=== PATIENT | male | born 1970 | race Caucasian/White ===

== ENCOUNTER 2017-01-19 02:19 | Emergency (ER) | payer OTHER ==
[2017-01-19 02:19] VITALS: BMI 38.3
[2017-01-19] MEDS ORDERED: Aspirin 325 mg EC Tablets PO STA (02:38)
[2017-01-19] MEDS ORDERED: Aspirin 325 mg EC Tablets PO ONE (03:14)
--- NOTE | 2017-01-19 04:33 | C.PDOC ---
History Of Present Illness pt woke up from sleep with a sharp chest pain. No f/c/n/v. speaking in complete sentences. Dull ache, 4/10, non radiating Time Seen by Provider: 01/19/17 02:36 Chief Complaint (Nursing): Chest Pain History Per: Patient History/Exam Limitations: no limitations Onset/Duration Of Symptoms: Hrs Current Symptoms Are (Timing): Still Present Context: Other Severity: Moderate Pain Scale Rating Of: 4 Quality: Dull, Burning Associated Symptoms: denies: Nausea, Dyspnea, Diaphoresis Modifying Factors: None Exacerbating Factors: None Alleviating Factors: None Recent travel outside of the [place]: No Additional History Per: Family Past Medical History Reviewed: Historical Data, Nursing Documentation, Vital Signs Vital Signs: Last Vital Signs Temp 98.3 F 01/19/17 02:30 Pulse 84 01/19/17 02:30 Resp 20 01/19/17 02:30 BP 147/91 H 01/19/17 02:30 Pulse Ox 97 01/19/17 04:09 - Medical History PMH: HTN Surgical History: Appendectomy - [facility] Procedures APPLICATION OF SPLINT (10/07/14) Family History: States: Unknown Family Hx - Social History Hx Tobacco Use: No Hx Alcohol Use: Yes Hx Substance Use: No - Immunization History Hx Tetanus Toxoid Vaccination: No Hx Influenza Vaccination: No Hx Pneumococcal Vaccination: No Review Of Systems Constitutional: Negative for: Fever, Chills Eyes: Negative for: Redness ENT: Negative for: Throat Pain Cardiovascular: Positive for: Chest Pain Respiratory: Negative for: Shortness of Breath Gastrointestinal: Negative for: Nausea, Vomiting, Abdominal Pain Genitourinary: Negative for: Dysuria Musculoskeletal: Negative for: Back Pain Skin: Negative for: Rash, Lesions, Jaundice, Bruising Neurological: Negative for: Weakness Psych: Negative for: Anxiety Physical Exam - Physical Exam Appears: Non-toxic, No Acute Distress Skin: Warm, Dry Head: Normacephalic Eye(s): bilateral: Normal Inspection, PERRL, EOMI Neck: Trachea Midline, Supple Chest: Symmetrical Cardiovascular: Rhythm Regular Respiratory: No Rales, No Rhonchi, No Wheezing Gastrointestinal/Abdominal: Soft, No Tenderness, No Distention, No Guarding, No Rebound Back: Normal Inspection Extremity: Normal ROM Extremity: Bilateral: Atraumatic, Normal Color And Temperature, Normal ROM Neurological/Psych: Oriented x3, Normal Speech, Normal Cognition Gait: Steady ED Course And Treatment ECG: Interpreted By Me, Viewed By Me ECG Rhythm: Sinus Rhythm (81), Nonspecific Changes O2 Sat by Pulse Oximetry: 97 Pulse Ox Interpretation: Normal - Radiology CXR: Interpreted by Me, Viewed By Me CXR Interpretation: No: Infiltrates, Fracture, Pnemothorax Progress Note: cardiac work up, asa Reevaluation Time: 04:08 Reassessment Condition: Improved Medical Decision Making Medical Decision Making: I considered the following diagnoses: acute coronary syndrome, pulmonary embolism, lower respiratory infection, aortic dissection/aneurysm, pneumothorax , pericarditis, esophagitis/GERD, zoster and esophageal rupture but found them to be unlikely based on the history, physical exam, and diagnostics. My conclusions regarding the unlikely diagnoses were based on: the absence of significant EKG abnormalities, the lack of suggestive x-ray findings, the absence of significant abnormalities on cardiac monitoring, the absence of asymmetric pulses. Pt feels fine, cp free and wants to go home Upon provider reevaluation patient is feeling better, is medically stable, and requires no further treatment in the ED at this time. Patient will be discharged home with Rx for protonix . Counseling was provided and all questions were answered regarding diagnosis and need for follow up with the referred clinic. There is agreement to discharge plan. Return if symptoms persist or worsen. Disposition Counseled Patient/Family Regarding: Studies Performed, Diagnosis, Need For Followup, Rx Given - Disposition Referrals: [facility] [Outside] [facility] [Outside] Disposition: HOME/ ROUTINE Disposition Time: 02:37 Condition: FAIR Additional Instructions: Please return if symptoms recur Prescriptions: Pantoprazole Sodium [Protonix] 40 mg PO DAILY #15 ect Instructions: Chest Pain (DC), Gastroesophageal Reflux Disease (ED) - Clinical Impression Clinical Impression: Chest pain, GERD (gastroesophageal reflux disease)
[2017-01-19 04:36] VITALS: BP 131/90; PULSE 84; RESP 20; TEMP 98.3; O2SAT 100
[2017-01-19 06:31] LABS: URINE BILIRUBIN NEGATIVE (NEGATIVE); URINE BLOOD NEGATIVE (NEGATIVE); URINE COLOR Yellow (YELLOW); URINE GLUCOSE (UA) NORMAL (Normal); URINE HYALINE CAST 0-2 /lpf (0-2); URINE KETONE NEGATIVE (NEGATIVE); URINE LEUKOCYTE ESTERASE NEG Leu/uL (Negative); URINE PROTEIN NEGATIVE (NEGATIVE); WBC URINE 1 /hpf (0-5)
[2017-01-19 06:39] LABS: ALB/GLOB RATIO 1.2 (1.0-2.1); ALKALINE PHOSPHATASE 174 U/L (38-126); ALT/SGPT 103 U/L (21-72); AST/SGOT 59 U/L (17-59); BILIRUBIN,TOTAL 0.7 mg/dL (0.2-1.3); BLOOD UREA NITROGEN 17 mg/dL (9-20); CALCIUM 8.9 mg/dl (8.6-10.4); CARBON DIOXIDE 27 mmol/L (22-30); CHLORIDE 103 mmol/L (98-107); GFR AFRICAN-AMERICAN > 60; GLUCOSE,RANDOM 159 mg/dL (75-110); POTASSIUM 3.9 mmol/L (3.6-5.2); SODIUM 141 mmol/L (132-148); TOTAL PROTEIN 7.4 g/dL (6.3-8.3)
[2017-01-19 06:43] LABS: INR 1.1
[2017-01-19 06:45] LABS: BASO % 0.5 % (0.0-2.0); EOS # 0.3 K/uL (0.0-0.7); EOS % 4.5 % (0.0-4.0); HEMATOCRIT 45.9 % (35.0-51.0); LYMPH # 2.4 K/uL (1.0-4.3); LYMPH % 40.9 % (20.0-40.0); MEAN CORPUSCULAR HEMOGLOBIN 29.7 pg (27.0-31.0); MEAN CORPUSCULAR HGB CONC 34.1 g/dL (33.0-37.0); MEAN PLATELET VOLUME 8.7 fL (7.2-11.7); MONO # 0.5 K/uL (0.0-0.8); MONO % 9.1 % (0.0-10.0); NRBC % 0.1 % (0.0-2.0); RED CELL DISTRIBUTION WIDTH 12.9 % (11.5-14.5)
--- NOTE | 2017-01-19 08:29 | RAD ---
PROCEDURE: CHEST RADIOGRAPH, 1 VIEW HISTORY: chest pain COMPARISON: None available. FINDINGS: LUNGS: Mild venous congestion. PLEURA: No pneumothorax or pleural fluid seen. CARDIOVASCULAR: Normal. OSSEOUS STRUCTURES: No significant abnormalities. VISUALIZED UPPER ABDOMEN: Normal. OTHER FINDINGS: None. IMPRESSION: Mild venous congestion.
--- NOTE | 2017-01-20 15:06 | CARD ---
APPROVED REPORT EKG Measurement Heart [id number] <Conclusion> Normal sinus rhythm Normal ECG
== END 2017-01-19 04:26 | disposition home or self-care (01) ==
LOC: C.ER 02:19
DX: K21.9 Gastro-esophageal reflux disease without esophagitis (principal)

== ENCOUNTER 2018-01-05 21:43 | Emergency (ER) | payer SELFPAY ==
[2018-01-05 21:43] VITALS: BMI 38.7
[2018-01-05 22:31] VITALS: O2SAT 98
[2018-01-05] MEDS ORDERED: Ciprofloxacin 400mg/200ml D5W 400 MG/200 ML BAG IV STA (22:43)
[2018-01-05] MEDS ORDERED: Ciprofloxacin 400mg/200ml D5W 400 MG/200 ML BAG IVPB ONE (22:57)
--- NOTE | 2018-01-05 22:58 | C.PDOC ---
History Of Present Illness 47 year old male with a PMH of HTN presents to ED with complaints of left sided mass for the past week growing in size and becoming increasingly painful. He reports history of similar abscess in the past. He has been applying warm towel to the area. Denies any fever or drainage. Time Seen by Provider: 01/05/18 22:27 Chief Complaint (Nursing): Abnormal Skin Integrity History Per: Patient History/Exam Limitations: no limitations Onset/Duration Of Symptoms: Days Current Symptoms Are (Timing): Still Present Location Of Injury: Left: Buttock Quality Of Symptoms: Painful Recent travel outside of the [place]: No Past Medical History Reviewed: Historical Data, Nursing Documentation, Vital Signs Vital Signs: Last Vital Signs Temp 98.2 F 01/06/18 01:25 Pulse 94 H 01/06/18 01:25 Resp 18 01/06/18 01:25 BP 138/70 01/06/18 01:25 Pulse Ox 98 01/06/18 01:25 - Medical History PMH: HTN Surgical History: Appendectomy - [facility] Procedures APPLICATION OF SPLINT (10/07/14) Family History: States: Unknown Family Hx - Social History Hx Tobacco Use: No Hx Alcohol Use: Yes Hx Substance Use: No - Immunization History Hx Tetanus Toxoid Vaccination: No Hx Influenza Vaccination: No Hx Pneumococcal Vaccination: No Review Of Systems Constitutional: Negative for: Fever, Chills Gastrointestinal: Positive for: Other (Left perianal abscess) Physical Exam - Physical Exam Appears: Non-toxic Skin: Warm, Dry Head: Atraumatic, Normacephalic Eye(s): bilateral: Normal Inspection Chest: Symmetrical, No Tenderness Cardiovascular: Rhythm Regular Respiratory: Normal Breath Sounds, No Rales, No Rhonchi, No Wheezing Gastrointestinal/Abdominal: Soft, No Tenderness, Other (Obese) Rectal: Other (large [id number] fluctuant mass with surrounding erythema to left perianal region, no drainage) Neurological/Psych: Oriented x3, Normal Speech, Other (No focal deficits) ED Course And Treatment - Laboratory Results Result Diagrams: 01/05/18 22:55 01/05/18 22:55 O2 Sat by Pulse Oximetry: 98 - CT Scan/US CT abd/pel Other Rad Studies (CT/US): Read By Radiologist, Radiology Report Reviewed CT/US Interpretation: EXAM: CT Abdomen and Pelvis With Intravenous Contrast. EXAM DATE/TIME: 01/05/2018 10:39 PM. CLINICAL HISTORY: 47 years old, male; Pain ; Abdominal pain; Additional info: Perirectal abscess. TECHNIQUE: Axial computed tomography images of the abdomen and pelvis with intravenous contrast. All CT. scans at this facility use one or more dose reduction techniques, viz. : automated exposure control;. ma/kV adjustment per patient size (including targeted exams where dose is matched to indication; i.e. head); or iterative reconstruction technique. Coronal and sagittal reformatted images were created and reviewed. CONTRAST: 100 mL of [id number] administered intravenously. COMPARISON: There are no prior studies for comparison. FINDINGS: Lower thorax : Heart size is normal. A small hiatal hernia. There is dependent atelectasis at the lung. bases. ABDOMEN: Liver: There is fatty infiltration of the liver. Gallbladder and bile ducts: unremarkable. Pancreas: Pancreas is mildly atrophic. Spleen: unremarkable. Adrenals: unremarkable. Kidneys and ureters: unremarkable. Stomach and bowel: Stomach is partially distended with air-fluid level. Rotation is normal. There is. no small bowel obstruction. Terminal ileum is unremarkable. There are surgical clips at the base of. the cecum. There are no focal colonic abnormalities. There is no perirectal abscess. PELVIS: Appendix: Surgically absent. Bladder: unremarkable. Reproductive: Seminal vesicles and prostate are unremarkable. ABDOMEN and PELVIS: Intraperitoneal space: There is no free air or free fluid. Bones/joints: There are degenerative changes in the osseus structures. There is minimal wedging. T11 and T10. Soft tissues: See above. Vasculature: Vascular structures are unremarkable. Lymph nodes: There is no pathologic adenopathy. Other findings: There is minimal bruising in the left lower abdominal lobe. IMPRESSION: Fatty liver, no acute solid visceral or bowel abnormality; prior appendectomy; no. perirectal abscess Medical Decision Making Medical Decision Making: Impression: abscess to perianal area Plan: * Labs * UA * IV Cipro * CT Abd/Pelvis Progress: CT abd/pel results IMPRESSION: Fatty liver, no acute solid visceral or bowel abnormality; prior appendectomy; no perirectal abscess 0050 contact surgical specialist for eval 0102 surgical specialist Vernell Nath at bedside to perform I&D of site. Wound culture obtained and sent to lab. Dressing applied Patient remained afebrile and reported improvement of symptoms. Rx given and instructed on follow up . Disposition Counseled Patient/Family Regarding: Studies Performed, Diagnosis, Need For Followup, Rx Given - Disposition Referrals: [facility] [Outside] [facility] [Outside] Disposition: HOME/ ROUTINE Disposition Time: 01:15 Condition: STABLE Additional Instructions: Rx sent to [facility] Take antibiotics daily as directed apply warm compresses to area can follow up for wound check in 2 days Return to the emergency department at any time if symptoms persist or worsen. Prescriptions: Cephalexin [cephalexin] 500 mg PO Q12 #14 cap Sulfamethoxazole/Trimethoprim [Bactrim DS 800 mg-160 mg] 1 tab PO BID #14 tab Instructions: Abscess Incision and Drainage Forms: [employer] (Kosovan) - POA Present On Arrival: None - Clinical Impression Clinical Impression: Gluteal abscess - PA / PROFESSOR OF COMMUNICATION ARTS / Resident Statement MD/DO has reviewed & agrees with the documentation as recorded. - Scribe Statement The provider has reviewed the documentation as recorded by the Scribe Balbir Kasper All medical record entries made by the Andrewibmoraima were at my direction and personally dictated by me. I have reviewed the chart and agree that the record accurately reflects my personal performance of the history, physical exam, medical decision making, and the department course for this patient. I have also personally directed, reviewed, and agree with the discharge instructions and disposition.
[2018-01-05 22:59] LABS: BASO # 0.1 K/uL (0.0-0.2); EOS # 0.3 K/uL (0.0-0.7); EOS % 3.4 % (0.0-4.0); HEMOGLOBIN 14.1 g/dL (12.0-18.0); LYMPH # 2.3 K/uL (1.0-4.3); LYMPH % 24.4 % (20.0-40.0); MEAN CELL VOLUME 87.6 fL (80.0-94.0); MEAN CORPUSCULAR HEMOGLOBIN 30.8 pg (27.0-31.0); MEAN CORPUSCULAR HGB CONC 35.2 g/dL (33.0-37.0); MONO % 10.3 % (0.0-10.0); NEUT # 5.6 K/uL (1.8-7.0); NEUT % 60.9 % (50.0-75.0); NRBC % 0.1 % (0.0-2.0); RBC 4.57 Mil/uL (4.40-5.90); RED CELL DISTRIBUTION WIDTH 12.6 % (11.5-14.5)
[2018-01-05 23:00] LABS: WHITE BLOOD COUNT 9.3 K/uL (4.8-10.8)
[2018-01-05 23:09] LABS: ALBUMIN 3.8 g/dL (3.5-5.0); ALT/SGPT 118 U/L (21-72); AST/SGOT 70 U/L (17-59); BLOOD UREA NITROGEN 16 mg/dL (9-20); CALCIUM 8.8 mg/dl (8.6-10.4); GFR AFRICAN-AMERICAN > 60; GFR NON-AFRICAN AMERICAN > 60
[2018-01-05 23:18] LABS: SQUAMOUS EPITHIAL 1 /hpf (0-5); URINE BACTERIA RARE (<OCC); URINE BILIRUBIN NEGATIVE (NEGATIVE); URINE BLOOD NEGATIVE (NEGATIVE); URINE CLARITY Clear (Clear); URINE COLOR Yellow (YELLOW); URINE GLUCOSE (UA) 3+ mg/dL (Normal); URINE LEUKOCYTE ESTERASE NEG Leu/uL (Negative); URINE PROTEIN NEGATIVE (NEGATIVE)
[2018-01-05] MEDS ORDERED: Iohexol 300 100 ML IJ ONE (23:27)
--- NOTE | 2018-01-06 00:23 | CT ---
EXAM: CT Abdomen and Pelvis With Intravenous Contrast EXAM DATE/TIME: 01/05/2018 10:39 PM CLINICAL HISTORY: 47 years old, male; Pain; Abdominal pain; Additional info: Perirectal abscess TECHNIQUE: Axial computed tomography images of the abdomen and pelvis with intravenous contrast. All CT scans at this facility use one or more dose reduction techniques, viz.: automated exposure control; ma/kV adjustment per patient size (including targeted exams where dose is matched to indication; i.e. head); or iterative reconstruction technique. Coronal and sagittal reformatted images were created and reviewed. CONTRAST: 100 mL of [id number] administered intravenously. COMPARISON: There are no prior studies for comparison. FINDINGS: Lower thorax: Heart size is normal. A small hiatal hernia. There is dependent atelectasis at the lung bases. ABDOMEN: Liver: There is fatty infiltration of the liver. Gallbladder and bile ducts: unremarkable Pancreas: Pancreas is mildly atrophic. Spleen: unremarkable Adrenals: unremarkable Kidneys and ureters: unremarkable Stomach and bowel: Stomach is partially distended with air-fluid level. Rotation is normal. There is no small bowel obstruction. Terminal ileum is unremarkable. There are surgical clips at the base of the cecum. There are no focal colonic abnormalities. There is no perirectal abscess PELVIS: Appendix: Surgically absent Bladder: unremarkable Reproductive: Seminal vesicles and prostate are unremarkable. ABDOMEN and PELVIS: Intraperitoneal space: There is no free air or free fluid. Bones/joints: There are degenerative changes in the osseus structures. There is minimal wedging T11 and T10. Soft tissues: See above. Vasculature: Vascular structures are unremarkable. Lymph nodes: There is no pathologic adenopathy. Other findings: There is minimal bruising in the left lower abdominal lobe. IMPRESSION: Fatty liver, no acute solid visceral or bowel abnormality; prior appendectomy; no perirectal abscess
[2018-01-06 01:26] VITALS: BP 138/70; PULSE 94; RESP 18; TEMP 98.2
--- NOTE | 2018-01-11 16:42 | PCM.PROC ---
- Incision & Drainage Of Abscess Anesthesia: Lidocaine 1% Prep Used: Betadine Procedure: Incised W/Scalpel Blade#:, Drained Pus, Irrigated Cavity W/Saline, Probed To Break Up Loculations, Cultures Obtained And Sent To Lab
== END 2018-01-06 01:25 | disposition home or self-care (01) ==
LOC: C.ER 21:43
DX: L02.31 Cutaneous abscess of buttock (principal)
CPT/HCPCS: 10060; 74177; 80053; 81001; 85025; 87040; 87070; 96365; 99284; J0744; Q9967

== ENCOUNTER 2018-08-11 08:02 | Day surgery (SDC) | payer OTHER ==
[2018-08-02 09:04] VITALS: BMI 33.3
[2018-08-11] MEDS ORDERED: Propofol 10 mg/ml Inj (20 ML) ONE (09:16)
[2018-08-11] MEDS ORDERED: Midazolam 2 MG/2 ML VIAL ONE (09:16)
[2018-08-11] MEDS ORDERED: Bupivacaine-Epi 0.5%-1:200,000 PF Inj ONE (09:25)
[2018-08-11] MEDS ORDERED: ceFAZolin IV 1 gm in Dextrose 2 GM/100 ML BAG IVPB ONE (09:25)
[2018-08-11] MEDS ORDERED: Succinylcholine Chloride 20 mg/ml Syr (5 ml) IV ONE (09:50)
[2018-08-11] MEDS ORDERED: HYDROmorphone 0.5 mg/0.5 ml ISec IVP PRN (10:30)
--- NOTE | 2018-08-11 10:31 | PCM.SURG1 ---
Surgeon's Initial Post Op Note - Surgeon's Notes Surgeon: Dr. House Grill Associate: Vandana PGY2; Bob MS3 Type of Anesthesia: General Endo, Local Anesthesia Administered By: Dr. Tomlinson; [place] Pre-Operative Diagnosis: Pilonidal Cyst Operative Findings: See operative report Post-Operative Diagnosis: same Operation Performed: Pilonidal Cyst Removal Specimen/Specimens Removed: Pilonidal Cyst Estimated Blood Loss: EBL {In ML}: 30 Blood Products Given: N/A Drains Used: No Drains Post-Op Condition: Good Date of Surgery/Procedure: 08/11/18 Time of Surgery/Procedure: 10:31
[2018-08-11] MEDS ORDERED: Oxycodone/Acetaminophen 5/325 mg Tab PO PRN (10:33)
[2018-08-11 10:58] VITALS: O2SAT 100
[2018-08-11 12:39] VITALS: BP 137/71; PULSE 79; RESP 18; TEMP 98
--- NOTE | 2018-08-12 01:40 | OP ---
PROCEDURE DATE: 08/11/2018 SURGEON: Edy House MD REMOTE PILOT OPERATOR: Kwabena Ross DO, PGY-2 SECOND REMOTE PILOT OPERATOR: Medical student, Bob. ANESTHESIA: General endotracheal anesthesia, local anesthesia. ANESTHESIA DEMONSTRATED BY: Dr. Tomlinson; [place] PREOPERATIVE DIAGNOSIS: Pilonidal cyst. POSTOPERATIVE DIAGNOSIS: Pilonidal cyst. PROCEDURE: Pilonidal cyst removal. SPECIMEN: Pilonidal cyst. ESTIMATED BLOOD LOSS: 30 mL. BLOOD PRODUCTS: No blood products given. DRAINS: No drains used. POSTOPERATIVE CONDITION: Good and stable. INDICATION: This is a 48-year-old male with recurrent pilonidal cyst infections, who comes in for planned pilonidal cyst removal. DESCRIPTION OF PROCEDURE: After obtaining informed consent, the patient underwent general endotracheal intubation and anesthesia and was placed in a prone jackknife position in the operating room. Time-out process was followed. Perioperative antibiotics were given and the patient was prepped and draped in the usual sterile fashion. There was no active drainage noted from the pilonidal cyst. Wide-excision of the pilonidal cyst and tract was made using a #10 scalpel blade. The elliptical incision of all the infected tissues was extended using electrical cautery down to the sacrococcygeal fascial plain. The entire infected tissue was sent for pathology as specimen. Specimen named, pilonidal cyst. Hemostasis was achieved using cautery. The wound was irrigated with copious amounts of normal saline. The entire wound was marsupialized using multiple dissolvable chromic sutures in interrupted fashion. The wound was packed with iodoform gauze. A clean sterile dressing was placed on top with 4 x 4s and ABD gauze. The patient was extubated successfully by the anesthesia team. Estimated blood loss was approximately 30 mL. The patient tolerated procedure well and was sent to the recovery room in satisfactory condition. Kwbaena Ross DO Edy House MD PATITO
== END 2018-08-11 12:42 | disposition home or self-care (01) ==
LOC: C.SDS 08:02
PROVIDERS: ATTEND Surgery
DX: L05.91 Pilonidal cyst without abscess (principal); I10 Essential (primary) hypertension; E11.9 Type 2 diabetes mellitus without complications; E03.9 Hypothyroidism, unspecified
CPT/HCPCS: 11771; 82948; 88304; J0690; J2250; J2704; J3010

== ENCOUNTER 2018-10-28 15:56 | Emergency (ER) | payer OTHER ==
[2018-10-28 15:56] VITALS: BMI 33.3
--- NOTE | 2018-10-28 16:40 | C.PDOC ---
History Of Present Illness 48 year old male with a history of HTN, and diabetes presents to the emergency department with complaints of hematuria x 2 today. Patient denies fever, chills, and abdominal pain. Time Seen by Provider: 10/28/18 16:09 Chief Complaint (Nursing): Male Genitourinary History Per: Patient History/Exam Limitations: no limitations Onset/Duration Of Symptoms: Hrs Current Symptoms Are (Timing): Still Present Associated Symptoms: Urinary Symptoms (hematuria). denies: Fever, Chills Past Medical History Reviewed: Historical Data, Nursing Documentation, Vital Signs Vital Signs: Last Vital Signs Temp 98.1 F 10/28/18 16:06 Pulse 71 10/28/18 16:06 Resp 18 10/28/18 16:06 BP 174/96 H 10/28/18 16:06 Pulse Ox 100 10/28/18 16:06 - Medical History PMH: HTN, Hypothyroidism Denies: Chronic Kidney Disease Surgical History: Appendectomy - [facility] Procedures APPLICATION OF SPLINT (10/07/14) Family History: States: No Known Family Hx - Social History Hx Tobacco Use: No Hx Alcohol Use: Yes Hx Substance Use: No - Immunization History Hx Tetanus Toxoid Vaccination: No Hx Influenza Vaccination: No Hx Pneumococcal Vaccination: No Review Of Systems Except As Marked, All Systems Reviewed And Found Negative. Constitutional: Negative for: Fever, Chills Gastrointestinal: Negative for: Abdominal Pain Genitourinary: Positive for: Hematuria Physical Exam - Physical Exam Appears: Non-toxic, No Acute Distress Skin: Normal Color, Warm, Dry Head: Atraumatic, Normacephalic Eye(s): bilateral: Normal Inspection, PERRL, EOMI Oral Mucosa: Moist Neck: Normal, Supple Chest: Symmetrical, No Tenderness Cardiovascular: Rhythm Regular, No Murmur Respiratory: No Rales, No Rhonchi, No Wheezing Gastrointestinal/Abdominal: Soft, No Tenderness Extremity: Normal ROM Neurological/Psych: Oriented x3, Normal Speech, Normal Cognition ED Course And Treatment - Laboratory Results Result Diagrams: 10/28/18 17:04 10/28/18 17:04 O2 Sat by Pulse Oximetry: 100 (RA) Pulse Ox Interpretation: Normal Medical Decision Making Medical Decision Making: Plan: CMP CBC Urine Culture Urinalysis Spoke to Dr. Hui 19:55 Wants to start the patient on Diflucan, will see him in his office on Tuesday10-30-17. Disposition - Disposition Referrals: Joanie Hui MD [Staff Provider] - Disposition: HOME/ ROUTINE Disposition Time: 20:00 Condition: STABLE Additional Instructions: PINK[place] W[place], thank you for letting us take care of you today. Your provider was Marybel Gold MD and you were treated for BLOOD IN URINE. The emergency medical care you received today was directed at your acute symptoms. If you were prescribed any medication, please fill it and take as directed. It may take several days for your symptoms to resolve. Return to the Emergency Department if your symptoms worsen, do not improve, or if you have any other problems. Please call the physicians have been referred to that are listed on the Patient Visit Information form that is included in your discharge packet on Tuesday, October 30, 2018 for an appointment for Tuesday or Tuesday. Bring any paperwork you were given at discharge with you along with any medications you are taking to your follow up visit. Our treatment cannot replace ongoing medical care by a primary care provider outside of the emergency department. Thank you for allowing the [facility] team to be part of your care today. If you had an X-Ray or CT scan: A Radiologist will review the ED reading if any change in treatment is needed we will contact you. If you had a blood, urine, or wound culture: It will take several days for the results, if any change in treatment is needed we will contact you. If you had an STI test: It will take 48 hours for the results. Please call after 1 week if you have not heard back. Prescriptions: Fluconazole [Diflucan] 150 mg PO DAILY #2 tab Instructions: Blood in the Urine (Hematuria), Adult (DC) Forms: [employer] (Latvian) - Clinical Impression Clinical Impression: Hematuria, Olivia UTI - Scribe Statement The provider has reviewed the documentation as recorded by the Scribe (Az [email or web address]) Provider Attestation: All medical record entries made by the Scribe were at my direction and personally dictated by me. I have reviewed the chart and agree that the record accurately reflects my personal performance of the history, physical exam, medical decision making, and the department course for this patient. I have also personally directed, reviewed, and agree with the discharge instructions and disposition.
[2018-10-28 16:53] LABS: URINE BILIRUBIN NEGATIVE (NEGATIVE); URINE BLOOD 3+ (NEGATIVE); URINE CLARITY Hazy (Clear); URINE COLOR Amber (YELLOW); URINE GLUCOSE (UA) NORMAL (Normal); URINE LEUKOCYTE ESTERASE NEG Leu/uL (Negative); URINE PROTEIN 2+ mg/dL (NEGATIVE); URINE UROBILINOGEN NORMAL mg/dL (0.2-1.0)
[2018-10-28 17:07] LABS: BASO # 0.1 K/uL (0.0-0.2); BASO % 1.1 % (0.0-2.0); EOS # 0.3 K/uL (0.0-0.7); EOS % 4.6 % (0.0-4.0); HEMOGLOBIN 15.1 g/dL (12.0-18.0); LYMPH # 2.6 K/uL (1.0-4.3); LYMPH % 39.8 % (20.0-40.0); MEAN CELL VOLUME 87.4 fL (80.0-94.0); MEAN CORPUSCULAR HEMOGLOBIN 29.5 pg (27.0-31.0); MEAN CORPUSCULAR HGB CONC 33.7 g/dL (33.0-37.0); MONO # 0.6 K/uL (0.0-0.8); MONO % 8.7 % (0.0-10.0); NEUT % 45.8 % (50.0-75.0); NRBC % 0.1 % (0.0-2.0); RBC 5.11 Mil/uL (4.40-5.90); RED CELL DISTRIBUTION WIDTH 12.4 % (11.5-14.5); WHITE BLOOD COUNT 6.6 K/uL (4.8-10.8)
[2018-10-28 17:20] LABS: ALB/GLOB RATIO 1.6 (1.0-2.1); ALBUMIN 4.6 g/dL (3.5-5.0); ALT/SGPT 38 U/L (21-72); AST/SGOT 42 U/L (17-59); BLOOD UREA NITROGEN 17 mg/dL (9-20); CALCIUM 9.1 mg/dl (8.6-10.4); GFR NON-AFRICAN AMERICAN > 60
[2018-10-28 18:54] VITALS: O2SAT 100
[2018-10-28 20:25] VITALS: BP 128/84; PULSE 78; RESP 18; TEMP 98.4
--- NOTE | 2018-10-29 09:29 | CT ---
Date of service: 10/28/2018 PROCEDURE: CT Abdomen and Pelvis without intravenous contrast HISTORY: back pain, hematuria COMPARISON: None. TECHNIQUE: Without contrast.. Contrast dose: 0 Radiation dose: Total exam DLP = 1005.08 mGy-cm. This CT exam was performed using one or more of the following dose reduction techniques: Automated exposure control, adjustment of the mA and/or kV according to patient size, and/or use of iterative reconstruction technique. FINDINGS: LOWER THORAX: Unremarkable. LIVER: Unremarkable. No gross lesion or ductal dilatation. GALLBLADDER AND BILE DUCTS: Unremarkable. PANCREAS: Unremarkable. No gross lesion or ductal dilatation. SPLEEN: Unremarkable. ADRENALS: Unremarkable. No mass. KIDNEYS AND URETERS: Unremarkable. No hydronephrosis. No solid mass. VASCULATURE: Unremarkable. No aortic aneurysm. No aortic atherosclerotic calcification or mural plaque present. BOWEL: No bowel obstruction. Postoperative change at cecal apex. Likely prior appendectomy. No abnormal bowel loops otherwise appreciated. APPENDIX: Not identified. See above PERITONEUM: Unremarkable. No free fluid. No free air. LYMPH NODES: Unremarkable. No enlarged lymph nodes. BLADDER: Poorly distended. No gross abnormality. REPRODUCTIVE: Normal prostate BONES: No acute fracture. OTHER FINDINGS: None. IMPRESSION: No acute abnormality. No evidence of urinary calculus or urinary tract obstruction. The preliminary findings for this examination were reported by [facility] at 6:54 p.m. on 10/28/2018. There is concurrence of this report with the preliminary findings.
== END 2018-10-28 20:25 | disposition home or self-care (01) ==
LOC: C.ER 15:56
DX: B37.49 Other urogenital candidiasis (principal); R31.9 Hematuria, unspecified; I10 Essential (primary) hypertension